=== PATIENT | male | born 1940 | race Caucasian/White ===

== ENCOUNTER → 2019-05-08 08:48 | Outpatient (BNVA) | payer OTHER, SELFPAY | PROVIDERS: Family Provider Nurse Practitioner Family; Visit Provider Orthopaedic Surgery | DX: M25.562 Pain in left knee (principal); M25.561 Pain in right knee | CPT/HCPCS: 73560; 73565 ==

== ENCOUNTER 2019-06-06 12:38 | Inpatient (IN) | payer OTHER, SELFPAY ==
[2019-05-29 10:43] VITALS: BMI 24.4
--- NOTE | 2019-05-29 11:26 | ANES.PREANE2 ---
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 for regional block and General PFSH Anesthesia PFSH: Social History Smoking and tobacco status: never smoked Alcohol intake: current Alcohol intake frequency: 0-2 Drinks per Day Data Anesthesia Cardiac Studies: No Data to Display
[2019-05-29 12:04] LABS: INR 1.39 (0.8-1.2)
[2019-06-06] VITALS (21 sets, daily range): BP systolic 104–158; BP diastolic 58–79; PULSE 68–90; RESP 14–22; TEMP 36.2–36.8; O2SAT 94–99
[2019-06-06] MEDS: gabapentin 300 mg Capsule PO (06:33)
[2019-06-06] MEDS: acetaminophen 500 mg Tablet 1000 MG PO (06:33)
[2019-06-06] MEDS: CELEcoxib 200 mg Capsule 400 MG PO (06:33)
[2019-06-06] MEDS: sodium chloride 0.9% 1,000 ML 30 ML IV (06:55)
--- NOTE | 2019-06-06 07:02 | PM.HPUD ---
H&P update H&P Update: DATE OF SURGERY/PROCEDURE: 06/06/19 DATE H&P PERFORMED: 05/08/19 PREOP DIAGNOSIS: Degenerative arthritis right knee PLANNED PROCEDURE: Operation Date: 06/06/19 07:50 Proposed Procedures p Total Knee Arthroplasty Utilizing imageless computer navigation [id number](Right) - Adrien Palomino DO Full H&P Medications/Allergies: Current Medications: Current Medications Generic Name Dose Route Start Last Admin Trade Name Freq PRN Reason Stop Dose Admin Vancomycin HCl 1,5 00 mg/ 250 mls @ 166.667 mls/hr 06/06/19 06:05 06/06/19 06:56 Sodium Chloride IV 06/06/19 07:34 166.7 mls/hr ONCE ONE Administration Protocol Sodium Chloride 1,000 mls @ 30 ml s/hr 06/06/19 06:15 06/06/19 06:55 Sodium Chloride 0.9% IV 06/07/19 06:14 30 mls/hr .Q24H LIZETH Administration Perinent History: Medical/Surgical History: Medical History (Updated 05/13/19 @ 14:53 by Adrien Palomino DO) Degenerative arthritis of right knee 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 Social History: Social History Smoking and tobacco status: never smoked Alcohol intake: current Alcohol intake frequency: 0-2 Drinks per Day A&P Assessment and plan (1) Degenerative arthritis of right knee: Right TKR with computer navigation Status: Acute Code(s): M17.11 - Unilateral primary osteoarthritis, right knee
[2019-06-06] MEDS: midazolam 1 mg/mL INJ 5 ML 5 MG IVP (07:54)
[2019-06-06] MEDS: fentaNYL 50 mcg/mL INJ 2mL 100 MCG IVP (07:56)
--- NOTE | 2019-06-06 08:05 | ANES.PROC ---
Anesthesia Procedures Procedure/Date: 06/06/19 Nerve Block ^: Nerve Block 1: Main Anesthesia: spinal anesthesia block Time Out Performed: Yes Consent: requested by attending/covering physician, risks and benefits reviewed and patient agrees to proceed Nerve block location: adductor canal (right) Anesthesia monitors applied: pulse oximetry, EKG, BP cuff and oxygen Nerve block position: supine Anesthetic Used: ropivicaine 0.5% and with decadron (4mg) Amount of anesthesia used (mL): 30 Ultrasound used to: recognize landmarks Nerve Stimulator Used?: No Interscalene/Femoral BLK: 4 stimuplex 21 g needle used for position and inplane approach, visualize local anesthetic spread and no vascular puncture identified Injection: neg aspiration of heme Patient Tolerated Procedure: well and no complications Complications: none
--- NOTE | 2019-06-06 08:47 | P.OP_ITS ---
Operative Report Date of procedure: June 06, 2019 Pre-op Diagnosis: Degenerative arthritis right knee Post-op diagnosis: same Post-op Findings: Tricompartmental osteoarthritis right knee Procedure Done: Right total knee arthroplasty Imageless computer-assisted navigation Implants: Marion triathlon knee implants Specimens removed/disposition: Bone and cartilage right knee Surgeon: Adrien Palomino Anesthesia: Other (Spinal anesthetic, single shot adductor canal block) Estimated blood loss (mL): 25 Tourniquet time (min): 120 (At 300 mmHg pressure) Complications: No apparent complications Condition: stable Disposition: PACU Brief History: 78-year-old white male with progressive disabling right knee arthritis. He is failed conservative treatment. He is attended the joint class. Risk, benefits potential complications of total joint arthroplasty were discussed with the patient. Risks include are not limited to failure to leave all pain, wound healing complications nerve/blood vessel/tendon injury, infection. Medical complications can include blood clots, heart attack, stroke risk up to including . All questions were answered the patient was agreeable to proceed with surgery. Procedure: 1.5 g vancomycin 2 g Ancef [place] triathlon knee implants Size 6 right posterior stabilized femur cemented Size 6 universal tibial baseplate Size 6 x 11 mm in thickness posterior stabilized tibial articular surface component 29 mm x 9 mm thickness asymmetric patellar component 2 packages of Simplex P low-viscosity cement with tobramycin Patient identified. Surgical site was signed. Surgical permit was signed. Patient received a single shot adductor canal block in the preoperative holding area. He received 1.5 g of vancomycin and 2 g of Ancef prior to skin incision for surgical prophylaxis. He was taken to the operating room. Anesthesia team performed a spinal anesthetic. A Riley catheter was placed for urinary drainage. A tourniquet was placed about the upper aspect of the right thigh. The right lower extremities and sterilely prepped and draped usual fashion. A timeout was performed. The patient received 1 g of transient gas at intravenously preoperatively for hemostasis. The operative limb was exsanguinated using Esmarch bandage tourniquet inflated to 300 mmHg pressure. A 20 cm midline incision was made over the anterior aspect of the knee. Full- thickness skin flaps were made. With a second knife a medial parapatellar arthrotomy was performed. Anterior aspects of the medial and lateral menisci were divided. Subperiosteal dissection was carried around to the posterior medial aspect of the tibia. Fat pad was excised. The patella was everted. Marginal osteophytes removed with rongeur. Thickness measured 25 mm. The appropriate sized patellar reamer blade was chosen. Patella was reamed to a residual of 16 mm. Patella was sized for a 29 mm x 9 mm thickness asymmetric patellar component. Appropriate peg holes were drilled. The patellar trial fit nicely on the cut surface. Overall thickness measured 25 mm after reaming with the patellar trial in place. A lateral patellar facetectomy was performed to prevent impingement on the femoral component. The knee was flexed to 60?. A pin for the Not guidance system was placed in the intercondylar notch and Whitesides line. The computer was then mounted in place. Maneuver was performed. In the computer was set for 5? of flexion for the femoral component and 0? for the mechanical axis. We resected 11 mm thickness due to the patient having a proximally a 10? flexion contracture. The femur was sized for a 6. We used the 4-in-1 cutting block followed by the box cut. We now turned our attention to preparation of the tibia. The extra medullary guide was pinned into place. Offset was registered. Anatomic references were made for the medial lateral malleoli. The computer was then set for a 00 varus valgus and posterior slope. The cut was then made with a oscillating saw. The medial and lateral menisci were now removed. Liposomal bupivacaine was injected into the joint line medially and laterally as well as the soft tissues about the knee using 120 mL of a one-to-one mixture of sterile saline, half percent bupivacaine and liposomal bupivacaine. A trial 6 Mr. stabilized right femoral component was put into place. The tibia sized for a size 6. We placed a 9 mm trial posterior stabilized component place in place knee through range of motion patella tracked nicely with a no touch technique. There is slight laxity with the 9 this was increased to 11 which gave good stability we allowed the tibial component and Tourette's rotation. Once this was done it was pinned into place and we drilled for the stem and punch the keel. All trial components were removed. Knee was dian irrigated with sterile saline containing antibiotic solution using pulse lavage. The knee surfaces were dried. We cemented in 2 batches first the patella followed by the femur this was allowed to harden and then the tibial component was cemented into place. We inserted an 11 mm posterior stabilized tibial articular surface. 11 gave good stability at extension and 90? of flexion. We removed the trial inserted the actual size 6 x 11 mm thickness posterior stabilized tibial articular surface component. The knee was now irrigated with Betadine-containing saline solution and antibiotic containing saline solution. We injected FloSeal into the knee joint for added hemostasis. Vancomycin powder was placed in the joint. The joint capsule was closed with interrupted permanent sutures as well as a running barbed suture. Incision closed in layers with samantha and exited on skin. The tourniquet was deflated during closure and a second gram of Chantix cast and was given intravenously. Sterile dressings were applied. An Jung wrap from ankle to thigh was applied. Patient was transferred from the operating room to the recovery room in stable and satisfactory condition. He tolerated surgery well. All counts are correct.
[2019-06-06] MEDS: vancomycin 1,000 MG SDV 1000 MG IRRIGATION (10:09)
--- NOTE | 2019-06-06 11:22 | SUR.OPER ---
FAMILY UPDATED BY PHONE IN WAITING AREA OF PATIENT PROGRESS
--- NOTE | 2019-06-06 12:17 | XR_ITS ---
WS: [id number] XR knee RT 1-2V 74316 REASON FOR EXAM: Postop images FINDINGS: Total knee replacement on the right the prosthesis and hardware are seen in good alignment. Tennille are noted along the skin surface. XR/XR knee RT 1-2V 47521 IMPRESSION: Total knee replacement hardware in satisfactory alignment.
[2019-06-06] MEDS: sennosides-docusate Tablet 2 TAB PO ×2 (14:17→17:39)
[2019-06-06] MEDS: calcium carbonate 500 mg Chew Tablet 1000 MG PO ×2 (14:17→17:39)
[2019-06-06] MEDS: chlorhexidine gluconate 0.12% Btl 473 mL 30 ML MUCOUS MEM ×3 (14:18→17:40)
[2019-06-06] MEDS: oxyCODONE-APAP 5-325 mg Tablet 1 TAB PO ×2 (14:18→18:29)
[2019-06-06] MEDS: cholecalciferol (vitamin D3) 1,000 unit Tablet 1000 UNIT PO (14:18)
[2019-06-06] MEDS: multivitamin therapeutic Tablet 1 TAB PO (14:18)
[2019-06-06] MEDS: aspirin 81 mg EC Tablet PO (14:18)
[2019-06-06] MEDS: sodium chloride 0.9% 1,000 ML 100 ML IV (14:20)
[2019-06-06] MEDS: ketorolac 30 mg/mL INJ 15 MG IVP (14:41)
[2019-06-06] MEDS: TRAMadol 50 mg Tablet PO ×2 (15:30→20:10)
--- NOTE | 2019-06-06 16:18 | PC.NURSE ---
Patient working with therapy walked to chair, patient became pale and weak, PT Gera said he was awake but not answering questions. BP at this time was 61/47. This nurse into room, patient laid in [place] position in bed, he began answering questions. BP 100/70. Dr. Palomino notified, patient resting in bed at this time right now BP maintaining 130/76.
[2019-06-06] MEDS: iron polysaccharide complex 150 mg Capsule PO (17:39)
[2019-06-06] MEDS: propranolol 20 mg Tablet 10 MG PO (17:43)
[2019-06-06] MEDS: atorvastatin 40 mg Tablet PO (20:13)
[2019-06-06] MEDS: apixaban 5 mg Tablet 2.5 MG PO (20:15)
[2019-06-07] VITALS (14 sets, daily range): BP systolic 113–168; BP diastolic 50–78; PULSE 72–86; RESP 16–24; TEMP 36.6–36.8; O2SAT 94–96
[2019-06-07] MEDS: oxyCODONE-APAP 5-325 mg Tablet 1 TAB PO ×3 (00:20→12:51)
[2019-06-07] MEDS: HYDROmorphone 1 mg/mL INJ 1 mL 0.5 MG IVP ×4 (01:35→16:53)
[2019-06-07] MEDS: sodium chloride 0.9% 1,000 ML 100 ML IV (03:14)
[2019-06-07 03:28] LABS: Hematocrit 34.5 % (42.0-52.0); Hemoglobin 11.4 g/dL (11.7-16.6); Lymphocytes # 0.7 10^3/uL (0.8-4.8); Lymphocytes % 7.9 %; Mean Corpuscular Volume 96.9 fL (80-94); Mean Platelet Volume 10.6 fL (7.4-10.4); Monocytes # 0.9 10^3/uL (0.2-0.9); Monocytes % 10.8 %; Nucleated Red Blood Cells % 0 %; Platelet Count 160 10^3/cmm (130-400); Red Blood Count 3.56 10^6/uL (4.1-5.3); Red Cell Distribution Width 12.8 % (12.1-15.1); White Blood Count 8.7 10^3/uL (4.0-10.0)
[2019-06-07 03:55] LABS: Anion Gap 15.3 (5-19); Blood Urea Nitrogen 16 mg/dL (8-23); Calcium 8.9 mg/dL (8.5-10.5); Carbon Dioxide 21 mmol/L (22-29); Chloride 105 mmol/L (98-107); Glucose 169 mg/dL (65-115); Osmolality Calculated 284 mOsm/kg (285-295); Potassium 4.3 mmol/L (3.5-5.1); Sodium 137 mmol/L (136-145)
[2019-06-07] MEDS: dilTIAZem ER (24HR) 120 mg Capsule PO (05:12)
--- NOTE | 2019-06-07 07:17 | PM.PN ---
Subjective Subjective: Interval history: 78-year-old white male postoperative day 1 status post right total knee arthroplasty with imageless computer assisted navigation for degenerative arthritis. Patient receiving vancomycin and cefazolin for antimicrobial prophylaxis. He is at highest risk for VTE. VTE prophylaxis consists of X abandoned 2.5 mg by mouth twice a day he is also receiving an 81 mg aspirin per day, sequential compression devices and immobilization. During an attempt to be mobilized last evening his blood pressure dropped he received fluids. Nursing reports that the patient was doing well. Vitals/I&O/Wt Last Vital Signs Temp 97.9 F 06/07/19 04:19 Pulse 73 06/07/19 04:19 Resp 16 06/07/19 05:39 BP 116/50 06/07/19 04:19 Pulse Ox 94 06/07/19 04:19 06/06/19 06/07/19 06/07/19 22:59 06:59 14:59 Intake Total 530 / 1800 1050 / 2850 Output Total 950 / 975 550 / 1525 Balance -420 / 825 500 / 1325 Physical Exam Narrative: EXAM NARRATIVE: 78-year-old white male in no acute distress Neck/C-Spine: COMMON NORMALS: no JVD Resp: COMMON NORMALS: normal respiratory effort and no retractions AUSCULTATION: no crackles, no rales, no rhonchi and no wheezes Cardio: COMMON NORMALS: no JVD, regular rate, regular rhythm, no murmurs and no rub RATE: regular rate RHYTHM: regular rhythm GI: COMMON NORMALS: normal to inspection, nondistended, normoactive bowel sounds Extremity: RIGHT LOWER EXTREMITY: Yes knee joint (Jung wrap removed, dressing to right knee clean dry and intact with Tegaderm covering dressing) and Yes lower leg Right lower leg: Yes special tests Right lower leg special tests: Yulisa's sign: Negative LEFT LOWER EXTREMITY: Yes lower leg Left lower leg: Yes special tests Left lower leg special tests: Yulisa's sign: Negative Urinary Catheter Management^: Riley: Cath Placed During This Visit: yes, but has since been removed by the nurse Reason for Continuing Indwelling Catheter: Perioperative Use in Selected Surgeries Urinary Catheter Date of Insertion: 06/06/19 Urinary Catheter Time of Insertion: 09:12 Date Urinary Catheter Removed: 06/07/19 Time Urinary Catheter Discontinued: 06:31 Data : 06/07/19 02:45 06/07/19 02:45 A&P Assessment and plan (1) S/P total knee arthroplasty: Finish IV antibiotic prophylaxis today Riley catheter removed today Continue apixaban, mobilization sequential compression devices for VTE prophylaxis (highest risk) Discharge planning to home potentially as soon as tomorrow with home health services. Discharge will depend if patient's pain is controlled and has been able to safely ambulate Status: Acute Code(s): Z96.659 - Presence of unspecified artificial knee joint Attestations Medical Necessity Statement*: patient requires continued inpatient care for mobilization. Had episode of hypotension during an attempt for mobilization on postoperative day 0. We'll need to monitor his ability to ambulate and transfer safely prior to making any considerations for discharge. Riley catheter discontinued today made to ensure no issues with urinary retention postoperatively Time Spent in Patient Care: 16 - 35 minutes Coding Level of Care Code Acute Group Insurance Special Agent for Chg Fwd Diagnoses S/P total knee arthroplasty Z96.659
[2019-06-07] MEDS: ketorolac 30 mg/mL INJ 15 MG IVP ×2 (08:03→15:30)
[2019-06-07] MEDS: calcium carbonate 500 mg Chew Tablet 1000 MG PO ×2 (08:04→17:51)
[2019-06-07] MEDS: multivitamin therapeutic Tablet 1 TAB PO (08:05)
[2019-06-07] MEDS: iron polysaccharide complex 150 mg Capsule PO ×2 (08:05→17:51)
[2019-06-07] MEDS: apixaban 5 mg Tablet 2.5 MG PO ×2 (08:06→17:51)
[2019-06-07] MEDS: aspirin 81 mg EC Tablet PO (08:06)
[2019-06-07] MEDS: cholecalciferol (vitamin D3) 1,000 unit Tablet 1000 UNIT PO (08:06)
[2019-06-07] MEDS: sennosides-docusate Tablet 2 TAB PO ×2 (08:09→17:51)
[2019-06-07] MEDS: chlorhexidine gluconate 0.12% Btl 473 mL 30 ML MUCOUS MEM ×3 (08:21→17:52)
[2019-06-07] MEDS: propranolol 20 mg Tablet 10 MG PO ×2 (10:18→19:30)
--- NOTE | 2019-06-07 11:51 | PC.CHAP ---
Pastoral Care Encounter/Spiritual Assessment Type of Contact [] Declined signal technician visit [] Patient/Family/Request visit [] Outpatient visit [] Follow-up visit [] Physician referral [] Code/Alert [] Routine visit [] Staff referral [] Actively dying [] Patient sleeping [] Family support [] [] Out of room [] Palliative care [] [] Receiving care in room [] Pre-surgical visit [] Trauma [] Long length of stay [] ICU visit [] Other: Relational/Emotional Strength [x] Patient feels connected with others/family/visitors/staff [] Distress [] Loneliness/isolation [] Abandonment Spirituality of Patient [] Person of Denae [] Attends Voodoo of their Denae [] Believes in Prayer [] Reads Bible or Buddhist materials [] There are Spiritual issues to be addressed Rug Cutter Helper Interventions [x] Prayer [x] Active listening [] Non-anxious presence [] Spiritual/emotional support [] Crisis/trauma care [] Spiritual counseling [] Bereavement support [] Provided bereavement packet [] Provided Bible/devotional materials [] Provided toy/stuffed animal, coloring book to patient or family member [] Provided Communion [] Anointing/[place] [] Salvation [] Completed spiritual assessment [] Other: Impact on Illness or Injury [] Angry [] Fearful [] Anxious [] Often cries [] Exhaustion [] Unable to work [] Unable to attend roman catholic [] Unable to walk/stand [] Unable to read [] Unable to drive [] Unable to eat/drink [] Unable to sleep [] Unable to be with family [] Patient intubated [] Other: Summary 10 min Time spent with patient
[2019-06-07] MEDS: TRAMadol 50 mg Tablet PO (15:31)
[2019-06-07] MEDS: oxyCODONE-APAP 5-325 mg Tablet PO (19:16)
[2019-06-07] MEDS: atorvastatin 40 mg Tablet PO (19:31)
[2019-06-08] VITALS (10 sets, daily range): BP systolic 94–157; BP diastolic 45–76; PULSE 75–109; RESP 16–20; TEMP 36.7–36.9; O2SAT 94–96
[2019-06-08] MEDS: oxyCODONE-APAP 5-325 mg Tablet PO ×2 (03:06→08:23)
[2019-06-08 04:11] LABS: Basophils % 0.3 %; Eosinophils # 0.1 10^3/uL (0.0-0.8); Eosinophils % 0.8 %; Hematocrit 30.8 % (42.0-52.0); Hemoglobin 10.2 g/dL (11.7-16.6); Lymphocytes # 0.9 10^3/uL (0.8-4.8); Lymphocytes % 12.6 %; Mean Corpuscular HGB Conc 33.1 g/dL (30.0-36.0); Mean Corpuscular Hemoglobin 31.2 pg (28.0-34.0); Mean Corpuscular Volume 94.2 fL (80-94); Mean Platelet Volume 11.1 fL (7.4-10.4); Monocytes # 1.2 10^3/uL (0.2-0.9); Monocytes % 17.1 %; Neutrophils % 68.8 %; Nucleated Red Blood Cells % 0 %; Platelet Count 138 10^3/cmm (130-400); Red Blood Count 3.27 10^6/uL (4.1-5.3); Red Cell Distribution Width 13.3 % (12.1-15.1); White Blood Count 7.2 10^3/uL (4.0-10.0)
[2019-06-08 04:37] LABS: Anion Gap 14.9 (5-19); Blood Urea Nitrogen 12 mg/dL (8-23); Carbon Dioxide 26 mmol/L (22-29); Chloride 100 mmol/L (98-107); Glucose 168 mg/dL (65-115); Osmolality Calculated 284 mOsm/kg (285-295); Potassium 3.9 mmol/L (3.5-5.1); Sodium 137 mmol/L (136-145)
[2019-06-08] MEDS: iron polysaccharide complex 150 mg Capsule PO ×2 (08:21→17:55)
[2019-06-08] MEDS: propranolol 20 mg Tablet 10 MG PO ×2 (08:21→18:00)
[2019-06-08] MEDS: calcium carbonate 500 mg Chew Tablet 1000 MG PO ×2 (08:21→17:55)
[2019-06-08] MEDS: cefUROXime 250 mg Tablet 500 MG PO ×2 (08:21→17:54)
[2019-06-08] MEDS: apixaban 5 mg Tablet 2.5 MG PO ×2 (08:22→17:55)
[2019-06-08] MEDS: dilTIAZem ER (24HR) 120 mg Capsule PO (08:22)
[2019-06-08] MEDS: sennosides-docusate Tablet 2 TAB PO ×2 (08:22→17:55)
[2019-06-08] MEDS: multivitamin therapeutic Tablet 1 TAB PO (08:22)
[2019-06-08] MEDS: cholecalciferol (vitamin D3) 1,000 unit Tablet 1000 UNIT PO (08:22)
[2019-06-08] MEDS: aspirin 81 mg EC Tablet PO (08:23)
[2019-06-08] MEDS: chlorhexidine gluconate 0.12% Btl 473 mL 30 ML MUCOUS MEM ×3 (08:24→17:58)
[2019-06-08] MEDS: HYDROmorphone 1 mg/mL INJ 1 mL 0.5 MG IVP (11:02)
[2019-06-08] MEDS: ketorolac 30 mg/mL INJ 15 MG IVP (15:26)
[2019-06-08] MEDS: TRAMadol 50 mg Tablet PO (15:27)
--- NOTE | 2019-06-08 17:27 | PC.NURSE ---
Bladder Scan pt had 151 nl urine in bladder at the most.
--- NOTE | 2019-06-08 18:53 | PM.PN ---
Subjective Subjective: Interval history: 78-year-old white male postoperative day 2 status post right total knee arthroplasty. Patient still with concerns with regards to postoperative pain. He became disoriented with taking Ambien last night. He states he takes Tylenol PM at home with no such side effects. We'll give him Benadryl this evening versus Ambien. Vitals/I&O/Wt Last Vital Signs Temp 98.4 F 06/08/19 16:00 Pulse 90 06/08/19 16:00 Resp 18 06/08/19 16:00 BP 94/53 06/08/19 16:00 Pulse Ox 96 06/08/19 16:00 06/08/19 06/08/19 06/08/19 06:59 14:59 22:59 Intake Total 120 / 120 360 / 480 Output Total 975 / 1475 500 / 500 Balance -975 / -275 -380 / -380 360 / -20 Physical Exam Narrative: EXAM NARRATIVE: 78-year-old white male in no acute distress. Expresses concerns about pain management although comfortable at the present time. Concerned about increased pain with increased activity when he goes home. Const: COMMON NORMALS: no apparent distress, oriented x3, healthy appearing, alert and well nourished GENERAL APPEARANCE: cooperative and comfortable ORIENTATION/CONSCIOUSNESS: Yes awake; not confused and not obtunded Neck/C-Spine: COMMON NORMALS: no JVD Resp: COMMON NORMALS: normal respiratory effort EFFORT & INSPECTION: Yes able to speak in complete sentences AUSCULTATION: no crackles, no rales, no rhonchi and no wheezes Cardio: COMMON NORMALS: no JVD, regular rate, regular rhythm, S1 normal heart sound, S2 normal heart sound and no murmurs RATE: regular rate RHYTHM: regular rhythm HEART SOUNDS: S1 normal and S2 normal Extremity: RIGHT LOWER EXTREMITY: Yes knee joint (incision intact, no evidence of infection, dressing changed) and Yes lower leg Right lower leg: Yes special tests Right lower leg special tests: Yulisa's sign: Negative LEFT LOWER EXTREMITY: Yes lower leg Left lower leg: Yes special tests Left lower leg special tests: Yulisa's sign: Negative Neuro: COMMON NORMALS: oriented x3 SENSORIUM/ORIENTATION: Yes alert Urinary Catheter Management^: Riley: Cath Placed During This Visit: yes, but has since been removed by the nurse Reason for Continuing Indwelling Catheter: Not indwelling catheter Urinary Catheter Date of Insertion: 06/06/19 Urinary Catheter Time of Insertion: 09:12 Date Urinary Catheter Removed: 06/07/19 Time Urinary Catheter Discontinued: 06:31 Data : 06/08/19 03:00 06/08/19 03:00 Attestations Medical Necessity Statement*: patient was felt to require greater than 2 overnight stays due to age,, hypertension, hyperlipidemia, deconditioning due to chronic osteoporosis arthritis right knee patient's extreme focus on pain management this problematic. Patient concerned about managing pain at home. Concerned about getting refills of narcotic medication on at home. Patient once again reinforced that he will not be pain free following surgery he will need to modify his activity level and amount of activity based on postoperative discomfort. He'll still be encouraged perform ankle pumps isometric contractions of calf and thigh muscles work on terminal extension. Arrangements at discharge made for home nursing and physical therapy prior to being seen in the office in approximately 2 weeks. Time Spent in Patient Care: 16 - 35 minutes (>than 50% of time spent in counselling and/or direct pt care on unit). Coding Level of Care Code Acute Personal Injury Law Specialist for [place]
--- NOTE | 2019-06-08 19:45 | P.DS_ITS ---
Discharge Providers Date of Admission: 06/06/19 12:38 Date of Discharge: June 09, 2019 Attending Provider at Admission: Adrien Palomino DO Attending Provider at Discharge: Adrien Palomino DO Primary Care Provider: Adrien Palomino DO Diagnoses at Discharge Discharge Diagnosis (1) S/P total knee arthroplasty: Status: Acute Reason for Visit Reason for Visit: Reason For Visit: Primary Osteoarthritits of right knee Hospital Course Hospital Course: 78-year-old white male with degenerative arthritis of the right knee admitted for elective right total knee arthroplasty. Patient underwent surgery with spinal anesthetic, single shot adductor canal block. He received perioperative intravenous antibiotics with vancomycin and cefazolin, Riley catheter was placed prior to surgery and removed on postoperative day 1. His full dose of Eliquis was stopped prior to surgery as well as low-dose aspirin he was started on low-dose Eliquis postoperatively and is slow dose aspirin was restarted. At the time of discharge to home he is return to his full dose of Eliquis 5 mg by mouth twice a day. He was started on extended oral prophylaxis on postoperative day 2 with Ceftin 500 mg 1 by mouth twice a day. He experienced some urinary frequency after the Riley catheter was removed she was started on Flomax 0.4 mg per day. Incision is been intact. Patient has participated in physical therapy. At home patient will have home nursing and physical therapy with follow-up in approximately 2 weeks in the orthopedic clinic Physical Exam Narrative: EXAM NARRATIVE: 78-year-old white male and no acute distress Const: COMMON NORMALS: no apparent distress, oriented x3, healthy appearing, alert and well nourished EXAM LIMITATIONS: no altered mental status GENERAL APPEARANCE: cooperative, comfortable and well kempt Neck/C-Spine: COMMON NORMALS: no JVD Resp: COMMON NORMALS: normal respiratory effort EFFORT & INSPECTION: Yes able to speak in complete sentences AUSCULTATION: no crackles, no rales, no rhonchi and no wheezes Cardio: COMMON NORMALS: no JVD, regular rate, regular rhythm, S1 normal heart sound, S2 normal heart sound and peripheral pulses 2+ throughout RATE: regular rate RHYTHM: regular rhythm HEART SOUNDS: S1 normal and S2 normal PERIPHERAL PULSES: pulses 2+ throughout Extremity: RIGHT LOWER EXTREMITY: Yes knee joint (incision intact no erythema) and Yes lower leg Right lower leg: Yes special tests Right lower leg special tests: Yulisa's sign: Negative LEFT LOWER EXTREMITY: Yes lower leg Left lower leg: Yes special tests Left lower leg special tests: Yulisa's sign: Negative Neuro: COMMON NORMALS: oriented x3 SENSORIUM/ORIENTATION: Yes alert Psych: APPEARANCE: Yes well kempt Urinary Catheter Management^: Riley: Cath Placed During This Visit: yes, but has since been removed by the nurse Reason for Continuing Indwelling Catheter: Not indwelling catheter Urinary Catheter Date of Insertion: 06/06/19 Urinary Catheter Time of Insertion: 09:12 Date Urinary Catheter Removed: 06/07/19 Time Urinary Catheter Discontinued: 06:31 Discharge Data Data Completed and Pending: Completed Studies During Hospitalization Category Date Time Status XR knee RT 1-2V 7 3560 Urgent Exams 06/06/19 12:17 Completed Pending at discharge Category Date Time Status Pathology: Surgic al [PTH] Routine Pth 06/06/19 11:34 Received Labs from last 24 hours 06/08/19 06/08/19 03:00 03:00 WBC 7.2 RBC 3.27 L Hgb 10.2 L Hct 30.8 L MCV 94.2 H MCH 31.2 MCHC 33.1 RDW 13.3 Plt Count 138 MPV 11.1 H Neut % (Auto) 68.8 Lymph % (Auto) 12.6 Rowan % (Auto) 17.1 Eos % (Auto) 0.8 Baso % (Auto) 0.3 Neut # (Auto) 5.0 Lymph # (Auto) 0.9 Rowan # (Auto) 1.2 H Eos # (Auto) 0.1 Baso # (Auto) 0.0 Nucleated RBC % (a uto) 0 Nucleated RBCs # 0.0 Sodium 137 Potassium 3.9 Chloride 100 Carbon Dioxide 26 Anion Gap 14.9 BUN 12 Creatinine 0.8 Glucose 168 H Calculated Osmolal ity 284 L Calcium 9.0 Vitals: Last Vital Signs Temp 98.4 F 06/08/19 16:00 Pulse 90 06/08/19 16:00 Resp 18 06/08/19 16:00 BP 114/45 06/08/19 19:44 Pulse Ox 96 06/08/19 16:00 Discharge Plan Discharge Patient Disposition: Home Health Service Condition: Stable Prescriptions: New Percocet 5-325 mg tablet 1 - 2 tab PO Q4H Qty: 40 RF: 0 cefuroxime axetil 500 mg tablet 500 mg PO BID 7 Days Qty: 14 RF: 0 Continued atorvastatin 40 mg tablet 40 mg PO QDAY RF: 0 Eliquis 5 mg tablet 5 mg PO BID RF: 0 propranolol 20 mg tablet 10 mg PO BID RF: 0 aspirin [Adult Low Dose Aspirin] 81 mg tablet,delayed release (DR/EC) 81 mg PO QDAY RF: 0 cetirizine 10 mg capsule 10 mg PO DAILY RF: 0 diltiazem HCl 120 mg capsule,extended release 24 hr 120 mg PO QAM RF: 0 fluticasone propionate [Flonase Allergy Relief] 50 mcg/actuation spray,suspension 1 spray INTRANASAL QDAY RF: 0 cholecalciferol (vitamin D3) 1,000 unit capsule 1,000 unit PO QDAY RF: 0 cyanocobalamin (vitamin B-12) 1,000 mcg capsule 1,000 mcg PO QDAY RF: 0 Discharge Orders: Discharge Order (Routine); Ordered 06/09/19 Ordered By: Adrien Palomino Referrals: [facility] ([facility]) [Outside] Adrien Palomino DO [Primary Care Provider] - 06/21/19 9:00 am Discharge Diet: Usual diet Discharge Activity: Limit activity as instructed and Use walker/crutches as instructed Patient Instructions: Cefuroxime (By mouth), Oxycodone/Acetaminophen (By mouth), Osteoarthritis (DC), Revision Total Joint Arthroplasty (DC) Activity Restrictions/Additional Instructions: Keep dressing keep clean and dry until seen by visiting nurse. May coordinate with visiting nurse to shower prior to dressing changes. Weightbearing as tolerated right lower extremity Work on active range of motion. Goal is to be at near 0 degrees of full extension and 90 degrees of flexion by 4 weeks after surgery. Ice right knee to decrease pain and swelling Perform ankle pumps, isometric contractions of left and right lower extremities and gluteal squeezes work up to 3-4 sets of 25 repetitions per day May try to do straight leg raises bilateral lower extremities alternating raising the extremities 3 to 4 inches off the floor or bed again doing 3-4 sets of up to 25 repetitions per day. Discharge Date/Time: 06/09/19 12:05 Discharge Attestations Time Spent in Discharge Care*: greater than 30 min Quality Metrics Clinical Quality Measures During this hospital stay, did patient experience: None Coding Level of Care Code Acute Electronic Health Records Specialist for Chg Fwd Exam Detailed Diagnoses S/P total knee arthroplasty Z96.659
[2019-06-08] MEDS: atorvastatin 40 mg Tablet PO (19:50)
[2019-06-08] MEDS: oxyCODONE-APAP 5-325 mg Tablet 1 TAB PO (19:50)
[2019-06-08] MEDS: diphenhydrAMINE 50 mg Capsule PO (19:50)
[2019-06-09] VITALS (8 sets, daily range): BP systolic 122–142; BP diastolic 64–78; PULSE 58–110; RESP 16–18; TEMP 36.7–37.2; O2SAT 94–96
[2019-06-09] MEDS: oxyCODONE-APAP 5-325 mg Tablet 1 TAB PO ×2 (03:10→09:40)
[2019-06-09] MEDS: ketorolac 30 mg/mL INJ 15 MG IVP (03:26)
[2019-06-09] MEDS: dilTIAZem ER (24HR) 120 mg Capsule PO (05:30)
[2019-06-09] MEDS: calcium carbonate 500 mg Chew Tablet 1000 MG PO (08:41)
[2019-06-09] MEDS: multivitamin therapeutic Tablet 1 TAB PO (08:41)
[2019-06-09] MEDS: iron polysaccharide complex 150 mg Capsule PO (08:41)
[2019-06-09] MEDS: chlorhexidine gluconate 0.12% Btl 473 mL 30 ML MUCOUS MEM (08:42)
[2019-06-09] MEDS: cholecalciferol (vitamin D3) 1,000 unit Tablet 1000 UNIT PO (08:42)
[2019-06-09] MEDS: sennosides-docusate Tablet 2 TAB PO (08:42)
[2019-06-09] MEDS: aspirin 81 mg EC Tablet PO (08:43)
[2019-06-09] MEDS: cefUROXime 250 mg Tablet 500 MG PO (10:15)
[2019-06-09] MEDS: apixaban 5 mg Tablet PO (10:17)
[2019-06-09] MEDS: sodium chloride 0.9% 500 ML 999 ML IV (10:26)
--- NOTE | 2019-06-09 10:50 | PC.NURSE ---
patient having orthostatichypotenstion and apical pulse of 58 so we held propranolol
[2019-06-09 11:30] LABS: Hemoglobin 10.7 g/dL (11.7-16.6)
--- NOTE | 2019-06-09 11:50 | PC.SOCIAL ---
Pg 2 IMM Explained to pt Pg 2 IMM. Pt verbally understands & signed. No questions voiced. Provided a copy to pt & left on pt's bedside table. Signed, dated, & timed, then placed in chart.
== END 2019-06-09 12:05 | disposition home health service (06) | DRG 470 ==
LOC: MEDSURG 13:33
PROVIDERS: Admitting Provider Orthopaedic Surgery; Family Provider Nurse Practitioner Family; PCP Orthopaedic Surgery; Visit Provider Orthopaedic Surgery
PROC: 0SRC0J9 Replacement of Right Knee Joint with Synthetic Substitute, Cemented, Open Approach (ICD-10-PCS; CPT 27447; principal; 2019-06-06 07:50)
DX: M17.11 Unilateral primary osteoarthritis, right knee (principal)
CPT/HCPCS: 12345; 36415; 51702; 73560; 80048; 85018; 85025; 85610; 86850; 86900; 87641; 88304; 96365; 96374; 96375; 97110; 97116; 97163; 97165; 97530; C1776; C9290; J0171; J0690; J1100; J1170; J1580; J1885; J2250; J2704; J2795; J3010; J3370; J3490; J7030; J7040; J7050; Q0163

== ENCOUNTER 2019-06-21 14:48 | Emergency (ER) | payer OTHER, SELFPAY ==
[2019-06-21 15:02] VITALS: BP 98/54; PULSE 93; RESP 16; TEMP 36.6; O2SAT 97; BMI 23.5
[2019-06-21 15:28] VITALS: BP 119/61; BP 121/71; BP 75/41; PULSE 85; PULSE 94; PULSE 99
--- NOTE | 2019-06-21 15:35 | XR_ITS ---
WS: [id number] XR chest 1V portable [id number] REASON FOR EXAM: dizziness FINDINGS: Comparisons were made to June 28, 2018. The heart and mediastinal interfaces were normal. The lung shankar are well-aerated there is no pneumonia, pleural effusion, pulmonary edema, or mass ef fect. Normal diaphragms are seen. The hilum and apices are normal. No osseous abnormalities. XR/XR chest 1V portable [id number] IMPRESSION: No active cardiopulmonary changes similar to previous exam.
--- NOTE | 2019-06-21 15:35 | ECG_ITS ---
Measurements Intervals [place] Rate: 95 P: ME: 0 QRS: 75 QRSD: 104 T: 0 QT: 356 QTc: 448 ATRIAL FIBRILLATION NONSPECIFIC T-WAVE ABNORMALITY ABNORMAL RHYTHM ECG Compared to ECG 06/29/2018 00:17:00 T-wave abnormality now present Intraventricular conduction delay no longer present Electronically Signed On 06-21-2019 16:50:55 LINING FINISHER by Josesito Boles M.D. [email or web address]
--- NOTE | 2019-06-21 15:38 | ED_ITS ---
HPI - Dizziness General: Chief Complaint: Dizziness Stated Complaint: low BP light headed/dizzy Time Seen by Provider: 06/21/19 15:16 History of Present Illness: HPI Narrative: Patient felt dizzy today while standing up. Had right knee replacement on via Dr. Palomino. Patient had a lot of knee pain on Wednesday and took 2 Percocet every 4 hours. Has had problems with constipation now. Said he does not feel dizzy now but does have dizziness with standing denies any chest pain or shortness of breath patient is on [place] LOBATO elicited complaint: dizziness Onset (ago): hour(s) Timing: sudden onset Severity: mild Description: room spinning Context: recent illness History of similar symptoms: No Exacerbating factors: movement/ambulation Relieving factors: remaining still Associated symptoms: Reports no associated symptoms; Denies chest pain, chills, headache(s), nausea, nasal congestion or vomiting Associated neuro symptoms: Reports no associated symptoms Review of Systems Const: Denies: fever, chills or body aches Eyes: Denies: change in vision or blurry vision ENMT: Denies: throat pain or nasal congestion Card: Denies: chest pain or shortness of breath on exertion Resp: Denies: shortness of breath, productive cough or non-productive cough GI: Denies: abdominal pain, nausea or vomiting : Denies: difficulty urinating Musc: Denies: extremity pain Skin/Breast: Denies: rash Neuro: Reports: dizziness; Denies: headache Psych: Denies: anxiety or depression Noe/Lymph: Denies: easy bruising PFSH ED PFSH: Medical History (Updated 06/21/19 @ 16:22 by FREEMAN Avendaño) Degenerative arthritis of right knee 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 Surgical History (Updated 06/07/19 @ 12:40 by Adrien Palomino DO) H/O arthroscopy of right knee H/O carotid endarterectomy Hx of tonsillectomy S/P total knee arthroplasty Social History Smoking and tobacco status: never smoked Alcohol intake: current Alcohol intake frequency: 0-2 Drinks per Day Physical Exam Const: COMMON NORMALS: no apparent distress, average body habitus and oriented x3 HENMT: COMMON NORMALS: normocephalic HEAD & SCALP: normal to inspection and normocephalic FACE & SINUS: normal facial exam Eye: COMMON NORMALS: conjunctivae normal GENERAL EYE: normal appearance of both eyes CONJUNCTIVA: Yes conjunctivae normal Neck/C-Spine: COMMON NORMALS: no JVD Chest: COMMONS NORMALS: inspection of chest normal Resp: COMMON NORMALS: normal respiratory effort and clear to auscultation bilaterally AUSCULTATION: clear to auscultation bilaterally Cardio: COMMON NORMALS: no JVD, regular rate and regular rhythm RATE: regular rate RHYTHM: regular rhythm GI: COMMON NORMALS: normal to inspection, nondistended, normoactive bowel sounds Extremity: COMMON NORMALS: normal to inspection and full ROM RIGHT LOWER EXTREMITY: Yes knee joint (With bandage in place no erythema noted to the leg and no swelling noted below the recent surgery) Neuro: COMMON NORMALS: oriented x3 Course Vital Signs: Vital signs: Vital Signs Temperature 97.8 F 06/21/19 15:02 Pulse Rate 85 06/21/19 15:28 Respiratory Rate 16 06/21/19 15:02 Blood Pressure 119/61 06/21/19 15:28 Pulse Oximetry 97 06/21/19 15:02 MDM - Dizziness MDM Narrative: Medical decision making narrative: Stressed the need to increase fluid which would include water lay off the coffee and tea if possible follow-up your family provider Lab Data: Labs: Lab Results 06/21/19 06/21/19 06/21/19 Range/Units 15:42 15:42 15:42 WBC 7.0 (4.0-10.0) 10^3/ uL RBC 3.56 L (4.1-5.3) 10^6/u L Hgb 10.8 L (11.7-16.6) g/dL Hct 34.0 L (42.0-52.0) % MCV 95.5 H (80-94) fL MCH 30.3 (28.0-34.0) pg MCHC 31.8 (30.0-36.0) g/dL RDW 13.2 (12.1-15.1) % Plt Count 519 H (130-400) 10^3/c mm MPV 9.3 (7.4-10.4) fL Neut % (Auto) 66.0 % Lymph % (Auto) 19.5 % Fleming % (Auto) 12.4 % Eos % (Auto) 1.4 % Baso % (Auto) 0.4 % Neut # (Auto) 4.6 (1.8-7.7) 10^3/u L Lymph # (Auto) 1.4 (0.8-4.8) 10^3/u L Fleming # (Auto) 0.9 (0.2-0.9) 10^3/u L Eos # (Auto) 0.1 (0.0-0.8) 10^3/u L Baso # (Auto) 0.0 (0.0-0.1) 10^3/u L Nucleated RBC % (a uto) 0 % Nucleated RBCs # 0.0 /100WBC Sodium 136 (136-145) mmol/L Potassium 4.7 (3.5-5.1) mmol/L Chloride 98 (98-107) mmol/L Carbon Dioxide 26 (22-29) mmol/L Anion Gap 16.7 (5-19) BUN 16 (8-23) mg/dL Creatinine 1.0 (0.7-1.2) mg/dL Glucose 146 H (65-115) mg/dL Calcium 9.7 (8.5-10.5) mg/dL Total Bilirubin 0.7 (0.15-1.2) mg/dL AST 18 (0-40) U/L ALT 13 (0-41) U/L Alkaline Phosphata se 101 (40-130) IU/L Troponin T Gen 5 n g/L 15 (0-15) ng/mL Total Protein 7.5 (6.6-8.7) g/dL Albumin 3.8 (3.5-5.2) g/dL Globulin 3.7 (1.3-4.6) g/dL EKG Data^: EKG 1: EKG interpretation date: 06/21/19 EKG interpretation time: 16:10 Interpretation: A fib, 95 bpm, lots of artifact Discharge Plan Discharge Patient Disposition: Home, Self-Care Clinical Impression: Acute dehydration, Atrial fibrillation, chronic Condition: Stable Prescriptions: New tramadol 50 mg tablet 50 mg PO Q6H PRN (Reason: pain) Qty: 10 RF: 0 No Action atorvastatin 40 mg tablet 40 mg PO QDAY RF: 0 Eliquis 5 mg tablet 5 mg PO BID RF: 0 propranolol 20 mg tablet 10 mg PO BID RF: 0 aspirin [Adult Low Dose Aspirin] 81 mg tablet,delayed release (DR/EC) 81 mg PO QDAY RF: 0 cetirizine 10 mg capsule 10 mg PO DAILY RF: 0 diltiazem HCl 120 mg capsule,extended release 24 hr 120 mg PO QAM RF: 0 fluticasone propionate [Flonase Allergy Relief] 50 mcg/actuation spray,suspension 1 spray INTRANASAL QDAY RF: 0 cholecalciferol (vitamin D3) 1,000 unit capsule 1,000 unit PO QDAY RF: 0 cyanocobalamin (vitamin B-12) 1,000 mcg capsule 1,000 mcg PO QDAY RF: 0 amoxicillin 500 mg capsule 500 mg PO .COMPLEX Qty: 24 RF: 0 Discharge Orders: Discharge Order (Routine); Ordered 06/21/19 Ordered By: Robbie Ren Referrals: Adrien Palomino DO [Primary Care Provider] - Latanya Blank FNP [Family Provider] - Discharge Diet: Usual diet Discharge Activity: Resume usual activity Patient Instructions: Dehydration (ED) Activity Restrictions/Additional Instructions: Follow-up with medical provider as directed. Take medications as prescribed. Return to the ER or your medical provider if condition worsens. Please read and understand discharge instructions. If any questions ask please. Increase fluids decrease use of Percocet. take laxative. Stand up slowly. 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
[2019-06-21 15:49] LABS: Basophils % 0.4 %; Eosinophils # 0.1 10^3/uL (0.0-0.8); Eosinophils % 1.4 %; Hemoglobin 10.8 g/dL (11.7-16.6); Lymphocytes # 1.4 10^3/uL (0.8-4.8); Lymphocytes % 19.5 %; Mean Corpuscular HGB Conc 31.8 g/dL (30.0-36.0); Mean Corpuscular Hemoglobin 30.3 pg (28.0-34.0); Mean Corpuscular Volume 95.5 fL (80-94); Mean Platelet Volume 9.3 fL (7.4-10.4); Monocytes # 0.9 10^3/uL (0.2-0.9); Monocytes % 12.4 %; Neutrophils # 4.6 10^3/uL (1.8-7.7); Nucleated Red Blood Cells % 0 %; Platelet Count 519 10^3/cmm (130-400); Red Blood Count 3.56 10^6/uL (4.1-5.3); Red Cell Distribution Width 13.2 % (12.1-15.1)
[2019-06-21] MEDS: sodium chloride 0.9% 1,000 ML 999 ML IV (16:06)
[2019-06-21 16:09] LABS: Troponin T (5th) Once 15 ng/mL (0-15)
[2019-06-21 16:25] LABS: Alanine Aminotransferase 13 U/L (0-41); Albumin Level 3.8 g/dL (3.5-5.2); Alkaline Phosphatase 101 IU/L (40-130); Anion Gap 16.7 (5-19); Aspartate Amino Transferase 18 U/L (0-40); Blood Urea Nitrogen 16 mg/dL (8-23); Calcium 9.7 mg/dL (8.5-10.5); Carbon Dioxide 26 mmol/L (22-29); Chloride 98 mmol/L (98-107); Globulin 3.7 g/dL (1.3-4.6); Glucose 146 mg/dL (65-115); Potassium 4.7 mmol/L (3.5-5.1); Sodium 136 mmol/L (136-145); Total Bilirubin 0.7 mg/dL (0.15-1.2); Total Protein 7.5 g/dL (6.6-8.7)
[2019-06-21 17:29] VITALS: BP 122/76; PULSE 75; RESP 18; O2SAT 99
== END 2019-06-21 17:31 | disposition home or self-care (01) ==
LOC: ER 17:18
PROVIDERS: Emergency Provider Nurse Practitioner Family; Family Provider Nurse Practitioner Family; PCP Orthopaedic Surgery
DX: E86.0 Dehydration (principal); I48.20 Chronic atrial fibrillation, unspecified; R42 Dizziness and giddiness
CPT/HCPCS: 12345; 36415; 71045; 80053; 84484; 85025; 93005; 96360; 99283; J7030

== ENCOUNTER → 2019-07-11 12:58 | Outpatient (BNVA) | payer OTHER, SELFPAY | PROVIDERS: Family Provider Nurse Practitioner Family; PCP Orthopaedic Surgery; Visit Provider Orthopaedic Surgery | DX: Z48.89 Encounter for other specified surgical aftercare (principal); Z96.651 Presence of right artificial knee joint | CPT/HCPCS: 73560; 73565 ==

== ENCOUNTER → 2019-07-20 10:59 | Outpatient (BNVA) | payer OTHER, SELFPAY | PROVIDERS: Family Provider Nurse Practitioner Family; PCP Orthopaedic Surgery; Visit Provider Internal Medicine Cardiovascular Disease | DX: I48.91 Unspecified atrial fibrillation (principal); I95.9 Hypotension, unspecified | CPT/HCPCS: 80048; 80162; 83735; 83880 ==

== ENCOUNTER → 2019-07-21 09:08 | Outpatient (BNVA) | payer OTHER, SELFPAY | PROVIDERS: Family Provider Nurse Practitioner Family; PCP Orthopaedic Surgery; Visit Provider Orthopaedic Surgery | DX: Z98.890 Other specified postprocedural states (principal); Z96.651 Presence of right artificial knee joint | CPT/HCPCS: 73562 ==

== ENCOUNTER 2019-07-21 10:17 | Outpatient (CLI) | payer OTHER, SELFPAY ==
[2019-07-21 11:01] LABS: C Reactive Protein 48.9 mg/L (0.0-4.9)
== END 2019-07-21 10:18 | disposition home or self-care (01) ==
LOC: LAB 10:20
PROVIDERS: Family Provider Nurse Practitioner Family; PCP Orthopaedic Surgery; Visit Provider Orthopaedic Surgery
DX: Z96.659 Presence of unspecified artificial knee joint (principal); Z48.89 Encounter for other specified surgical aftercare
CPT/HCPCS: 36415; 86140

== ENCOUNTER → 2019-07-27 08:55 | Outpatient (BNVA) | payer OTHER, SELFPAY | PROVIDERS: Family Provider Nurse Practitioner Family; PCP Orthopaedic Surgery; Visit Provider Internal Medicine Cardiovascular Disease | DX: I95.9 Hypotension, unspecified (principal) | CPT/HCPCS: 80048; 83880 ==

== ENCOUNTER → 2019-08-03 09:53 | Outpatient (BNVA) | payer OTHER, MEDICARE, SELFPAY | PROVIDERS: Family Provider Nurse Practitioner Family; PCP Orthopaedic Surgery; Visit Provider Internal Medicine Cardiovascular Disease | DX: Z96.659 Presence of unspecified artificial knee joint (principal) | CPT/HCPCS: 85025; 85651; 86141 ==

== ENCOUNTER → 2019-08-31 09:27 | Outpatient (BNVA) | payer OTHER, MEDICARE, SELFPAY | PROVIDERS: Family Provider Nurse Practitioner Family; PCP Orthopaedic Surgery; Visit Provider Orthopaedic Surgery | DX: Z48.89 Encounter for other specified surgical aftercare (principal); Z98.890 Other specified postprocedural states; Z96.651 Presence of right artificial knee joint | CPT/HCPCS: 73560; 73565 ==

== ENCOUNTER 2019-09-05 06:00 | Outpatient (RCR) | payer OTHER, SELFPAY ==
[2019-09-01 11:22] LABS: Basophils % 0.5 %; Eosinophils # 0.1 10^3/uL (0.0-0.8); Eosinophils % 2.4 %; Hematocrit 40.7 % (42.0-52.0); Hemoglobin 12.8 g/dL (11.7-16.6); Lymphocytes % 17.3 %; Mean Corpuscular HGB Conc 31.4 g/dL (30.0-36.0); Mean Corpuscular Hemoglobin 29.9 pg (28.0-34.0); Mean Corpuscular Volume 95.1 fL (80-94); Mean Platelet Volume 10.5 fL (7.4-10.4); Monocytes # 0.7 10^3/uL (0.2-0.9); Monocytes % 11.9 %; Neutrophils # 3.9 10^3/uL (1.8-7.7); Neutrophils % 67.6 %; Nucleated Red Blood Cells % 0 %; Platelet Count 271 10^3/cmm (130-400); Red Blood Count 4.28 10^6/uL (4.1-5.3); Red Cell Distribution Width 14.6 % (12.1-15.1); White Blood Count 5.8 10^3/uL (4.0-10.0)
[2019-09-01 11:52] LABS: C Reactive Protein 1.8 mg/L (0.0-4.9)
[2019-09-01 12:12] LABS: Erythrocyte Sedimentation Rate 38 mm/hr (0-10)
== END 2019-09-17 23:59 | disposition home or self-care (01) ==
LOC: TPT 06:00
PROVIDERS: PCP Emergency Medicine Emergency Medical Services; Referring Provider Orthopaedic Surgery; Visit Provider Orthopaedic Surgery
DX: Z47.1 Aftercare following joint replacement surgery (principal); Z96.651 Presence of right artificial knee joint
CPT/HCPCS: 36415; 85025; 85651; 86140; 97110; 97140; 97161; G0283

== ENCOUNTER 2019-09-06 09:12 | Outpatient (CLI) | payer OTHER, SELFPAY ==
--- NOTE | 2019-09-06 09:16 | USCV_ITS ---
Waqas Robbie Age: 79 Gender: M : 1940 Exam Date: 09/06/2019 09:25 Ordering Phys: Jose Lyn DO Technologist: Breanne Roth [place] [facility] [place]: STENOSIS Risk Factors: Previous Vascular Surgery: Right Brachial BP: / Left Brachial BP: / Right Left Velocity (cm/s) Spectral Plaque Velocity (cm/s) Spectral Plaque Syst/Diast Broadening Syst/Diast Broadening 65.10/ 15.40 Prox CCA 71.50 / 8.50 58.40/ 14.30 Mid CCA 62.90 / 11.70 69.50/ 12.10 Distal CCA 54.40 / 5.40 29.50/ 14.80 Prox ICA 55.10 / 11.60 55.90/ 14.80 Mid ICA 83.20 / 19.80 77.70/ 24.90 Distal ICA 80.70 / 18.90 93.70 ECA 89.30 1.33 ICA/CCA 1.32 Antegrade Vertebral Antegrade 28.70/ 9.30 cm/s 22.70/ 6.00 cm/s Tri Subclavian Tri 76.90 87.90 CONCLUSIONS Right ICA stenosis <50%. Mild atheromatous plaque right carotid bulb/ICA. Left ICA stenosis <50%. Mild atheromatous plaque left carotid bulb/ICA. Normal antegrade Doppler flow noted in the right vertebral artery. Normal antegrade Doppler flow noted in the left vertebral artery. Deandre Rodriguez MD (Electronically Signed) Final Date: 06 Sep 2019 10:04 S
== END 2019-09-06 09:13 | disposition home or self-care (01) ==
LOC: RAD 09:15
PROVIDERS: PCP Emergency Medicine Emergency Medical Services; Visit Provider Emergency Medicine Emergency Medical Services
DX: I65.23 Occlusion and stenosis of bilateral carotid arteries (principal)
CPT/HCPCS: 93880

== ENCOUNTER 2019-09-18 06:00 | Outpatient (RCR) | payer OTHER, MEDICARE, SELFPAY | END 2019-10-17 23:59 | disposition home or self-care (01) | LOC: TPT 06:00 | PROVIDERS: PCP Emergency Medicine Emergency Medical Services; Visit Provider Orthopaedic Surgery | DX: Z47.1 Aftercare following joint replacement surgery (principal); Z96.651 Presence of right artificial knee joint | CPT/HCPCS: 97110; 97140 ==

== ENCOUNTER → 2019-09-19 08:57 | Outpatient (BNVA) | payer OTHER, SELFPAY | PROVIDERS: PCP Emergency Medicine Emergency Medical Services; Visit Provider Specialist | DX: G25.0 Essential tremor (principal); Z86.73 Personal history of transient ischemic attack (TIA), and cerebral infarction without residual deficits | CPT/HCPCS: 99213 ==

== ENCOUNTER → 2019-11-10 09:15 | Outpatient (BNVA) | payer OTHER, MEDICARE, SELFPAY | PROVIDERS: PCP Emergency Medicine Emergency Medical Services; Visit Provider Orthopaedic Surgery | DX: M17.11 Unilateral primary osteoarthritis, right knee (principal); Z96.659 Presence of unspecified artificial knee joint | CPT/HCPCS: 73560; 73565 ==

== ENCOUNTER → 2019-12-19 11:05 | Outpatient (BNVA) | payer OTHER, SELFPAY | PROVIDERS: PCP Emergency Medicine Emergency Medical Services; Visit Provider Specialist | DX: G25.0 Essential tremor (principal); Z86.73 Personal history of transient ischemic attack (TIA), and cerebral infarction without residual deficits | CPT/HCPCS: 99212 ==

== ENCOUNTER → 2020-06-19 09:17 | Outpatient (BNVA) | payer OTHER, SELFPAY | PROVIDERS: PCP Emergency Medicine Emergency Medical Services; Visit Provider Specialist | DX: G25.0 Essential tremor (principal); M19.09 Primary osteoarthritis, other specified site; Z86.73 Personal history of transient ischemic attack (TIA), and cerebral infarction without residual deficits | CPT/HCPCS: 99213; 99214 ==

== ENCOUNTER 2020-09-20 12:35 | Outpatient (CLI) | payer OTHER, SELFPAY ==
--- NOTE | 2020-09-20 13:30 | USCV_ITS ---
WaqasRobbie Age: 80 Gender: M : 1940 Exam Date: 09/20/2020 12:46 Ordering Phys: Travon Flower MD (Andy) [email or web address] [place] Technologist: Breanne Roth Exam Location: [facility] – [place] Indication: STENOSIS Risk Factors: Previous Vascular Surgery: Right Brachial BP: / Left Brachial BP: / Right Left Velocity (cm/s) Spectral Plaque Velocity (cm/s) Spectral Plaque Syst/Diast Broadening Syst/Diast Broadening 89.30/ 8.80 Prox CCA 63.90 / 7.10 80.50/ 20.90 Mid CCA 85.40 / 6.80 46.30/ 8.80 Distal CCA 79.50 / 10.30 37.00/ 8.30 Prox ICA 101.20/ 15.80 64.50/ 14.70 Mid ICA 135.40/ 22.30 64.50/ 13.40 Distal ICA 89.40 / 21.00 124.10 ECA 144.60 0.80 ICA/CCA 1.58 Antegrade Vertebral Antegrade 45.30/ 10.20 cm/s 39.60/ 11.70 cm/s Tri Subclavian Tri 54.30 154.7 0 CONCLUSIONS Right ICA stenosis <50%. Left ICA stenosis 50-69%. at the lower end of the range Normal antegrade Doppler flow noted in the right vertebral artery. Normal antegrade Doppler flow noted in the left vertebral artery. Deandre Rodriguez MD (Electronically Signed) Final Date: 20 September 2020 16:00 S
== END 2020-09-20 12:36 | disposition home or self-care (01) ==
LOC: RAD 12:38
PROVIDERS: PCP Emergency Medicine Emergency Medical Services; Visit Provider Thoracic Surgery (Cardiothoracic Vascular Surgery)
DX: I65.23 Occlusion and stenosis of bilateral carotid arteries (principal)
CPT/HCPCS: 93880

== ENCOUNTER 2020-11-08 09:00 | Outpatient (CLI) | payer OTHER, SELFPAY ==
--- NOTE | 2020-11-08 09:30 | USCV_ITS ---
WaqasRobbie Age: 80 Gender: M : 1940 Exam Date: 11/08/2020 09:26 Ordering Phys: Travon Flower MD (Andy) [email or web address] [place] Technologist: Ute Pineda Exam Location: [facility] – [place] Indication: Cardiac murmur unspecified BP: 130 / 80 HR: 85 Rhythm: Other Technical Quality: Adequate MEASUREMENTS (Male / Female) Normal Values 2D ECHO LV Diastolic Diameter PLAX 3.8 cm 4.2 - 5.9 / 3.9 - 5.3 cm LV Systolic Diameter PLAX 2.4 cm IVS Diastolic Thickness 1.3 cm 0.6 - 1.0 / 0.6 - 0.9 cm IVS Systolic Thickness 2.1 cm LVPW Diastolic Thickness 1.4 cm 0.6 - 1.0 / 0.6 - 0.9 cm LVPW Systolic Thickness 1.5 cm LV Ejection Fraction 2D Teich 68.0 % LV Ejection Fraction MOD 2C 50.9 % LV Ejection Fraction 2C AL 52.0 % LA Diameter 3.0 cm LA Width 3.2 cm LA Height 5.2 cm RA Width 4.2 cm RA Height 5.3 cm Aorta at Sinotubular Diameter 3.4 cm M-MODE Aortic Annulus Diameter 3.8 cm LA Ao Ratio MM 0.8 MV E Point Septal Separation 0.7 cm DOPPLER AV Peak Velocity 238.2 cm/s LVOT Peak Velocity 81.0 cm/s MV Peak Velocity 93.0 cm/s MV Area PHT 2.3 cm squared Mitral E to A Ratio 1.3 MV E' Velocity 41.0 cm/s Mitral E to MV E' Ratio 14.6 Mitral E to LV E' Lateral Ratio 9.5 Mitral E to LV E' Septal Ratio 31.0 TR Peak Velocity 118.1 cm/s TR Peak Gradient 5.6 mmHg TR Mean Velocity 59.8 cm/s TR Mean Gradient 1.7 mmHg TR Velocity Time Integral 15.7 cm Right Atrial Pressure 3.0 mmHg Pulmonary Artery Systolic Pressu 8.6 mmHg PV Peak Velocity 63.0 cm/s RV Acceleration Time 0.1 s RV Ejection Time 0.3 s RV AcT/ET 0.4 FINDINGS Left Ventricle Normal left ventricular size, systolic function and wall thickness, with no regional wall motion abnormalities. Left ventricular ejection fraction is estimated at 60 %. Abnormal diastolic function. Right Ventricle Normal right ventricular size and systolic function. Right ventricular systolic pressure 19 mmHg. Right Atrium Normal right atrial size. Right atrial pressure estimated at 3 mm Hg. Left Atrium Normal left atrial size. Mitral Valve Mildly thickened mitral valve. No mitral valve stenosis. Trace mitral valve regurgitation. Aortic Valve Moderately thickened and calcified probably trileaflet aortic valve (more along right and non coronary cusp). Mild aortic valve stenosis, peak velocity 2.5 m/s, peak gradient 25 mm Hg, mean gradient 13 mmHg, RAS 1.7 cm squared. Mild to moderate aortic valve regurgitation. Tricuspid Valve Structurally normal tricuspid valve. No tricuspid valve stenosis. Trace to mild tricuspid valve regurgitation. Pulmonic Valve Structurally normal pulmonic valve. Mild pulmonary valve regurgitation. Pericardium No pericardial effusion. Aorta Normal size aortic root and proximal ascending aorta. Normal sized inferior vena cava with normal respiratory variations. CONCLUSIONS 1. Normal left ventricular size, systolic function and wall thickness, with no regional wall motion abnormalities. Left ventricular ejection fraction is estimated at 60 %. Abnormal diastolic function. 2. Moderately thickened and calcified probably trileaflet aortic valve (more along right and non coronary cusp). Mild aortic valve stenosis, peak velocity 2.5 m/s, peak gradient 25 mm Hg, mean gradient 13 mmHg, RAS 1.7 cm squared. Mild to moderate aortic valve regurgitation. 3. Pulmonary artery pressure estimated at 19 mm Hg. 4. When compared to previous echocardiogram dated 03/27/2019, there is slight worsening of aortic valve stenosis and regurgitation. Shannon Ruby MD (Electronically Signed) Final Date: 10 November 2020 11:23 S
== END 2020-11-08 09:01 | disposition home or self-care (01) ==
LOC: US 09:05
PROVIDERS: PCP Emergency Medicine Emergency Medical Services; Visit Provider Thoracic Surgery (Cardiothoracic Vascular Surgery)
DX: R01.1 Cardiac murmur, unspecified (principal); I35.0 Nonrheumatic aortic (valve) stenosis
CPT/HCPCS: 93306

== ENCOUNTER 2021-06-25 12:57 | Outpatient (CLI) | payer OTHER, SELFPAY ==
--- NOTE | 2021-06-25 13:30 | USCV_ITS ---
Waqas Robbie Age: 80 Gender: M : 1940 Exam Date: 06/25/2021 13:39 Ordering Phys: Travon Flower MD (Andy) [email or web address] [place] Technologist: Matheus Farmer [place] [facility] [place]ication: bialteral carotid stenosis Risk Factors: Previous Vascular Surgery: Right Brachial BP: / Left Brachial BP: / Right Left Velocity (cm/s) Spectral Plaque Velocity (cm/s) Spectral Plaque Syst/Diast Broadening Syst/Diast Broadening 114.10/8.80 Prox CCA 96.70 / 28.80 125.70/13.20 Mid CCA 83.40 / 21.10 123.50/14.30 Distal CCA 62.90 / 11.70 35.50/ 13.10 Prox ICA 79.20 / 14.00 118.80/29.90 Mid ICA 148.80/ 35.30 71.20/ 19.20 Distal ICA 96.30 / 21.80 125.70 ECA 133.40 0.94 ICA/CCA 1.78 Antegrade Vertebral Antegrade 71.80/ 13.70 cm/s 66.00/ 9.30 cm/s Tri Subclavian Tri 87.80 100.2 0 FINDINGS Comparison:. 09/20/20. Mild right carotid artery atherosclerosis. No significant stenosis. Mild to moderate irregular plaque left carotid with minimal elevation of velocity in the ICA. Similar to prior exam. Bilateral antegrade vertebral arteries. CONCLUSIONS Left ICA stenosis 50-69%. Closer to 50%. No progression since the prior exam. Right ICA stenosis < 50%. Dr. Martha Olivia DO (Electronically Signed) Final Date: 27 June 2021 07:57 S
== END 2021-06-25 12:58 | disposition home or self-care (01) ==
LOC: RAD 12:59
PROVIDERS: PCP Emergency Medicine Emergency Medical Services; Visit Provider Thoracic Surgery (Cardiothoracic Vascular Surgery)
DX: I65.23 Occlusion and stenosis of bilateral carotid arteries (principal)
CPT/HCPCS: 93880

== ENCOUNTER → 2021-07-03 09:59 | Outpatient (BNVA) | payer OTHER, SELFPAY | PROVIDERS: PCP Emergency Medicine Emergency Medical Services; Visit Provider Thoracic Surgery (Cardiothoracic Vascular Surgery) | DX: I65.23 Occlusion and stenosis of bilateral carotid arteries (principal) | CPT/HCPCS: 99202; 99212 ==

== ENCOUNTER → 2021-09-11 13:53 | Outpatient (BNVA) | payer OTHER, SELFPAY | PROVIDERS: PCP Emergency Medicine Emergency Medical Services; Visit Provider Internal Medicine Cardiovascular Disease | DX: I48.91 Unspecified atrial fibrillation (principal); I95.9 Hypotension, unspecified; Z86.73 Personal history of transient ischemic attack (TIA), and cerebral infarction without residual deficits; I65.23 Occlusion and stenosis of bilateral carotid arteries | CPT/HCPCS: 99214 ==

== ENCOUNTER 2022-06-18 11:05 | Outpatient (CLI) | payer OTHER, SELFPAY ==
--- NOTE | 2022-06-18 11:15 | USCV_ITS ---
Waqas Robbie Age: 81 Gender: M : 1940 Exam Date: 06/18/2022 11:25 Ordering Phys: Travon Flower MD (Andy) ([email or web address] [place] Technologist: Beverly Mills Exam Location: [facility] – [place] Indication: YENY CCA STENOSIS Risk Factors: Previous Vascular Surgery: Right Brachial BP: / Left Brachial BP: / Right Left Velocity (cm/s) Spectral Plaque Velocity (cm/s) Spectral Plaque Syst/Diast Broadening Syst/Diast Broadening 99.20/ 14.30 Prox CCA 71.80 / 17.90 102.50/15.40 Mid CCA 49.30 / 9.20 49.30/ 9.20 Distal CCA 78.20 / 21.70 Hetro 32.00/ 10.30 Prox ICA 62.40 / 15.80 Hetro 52.10/ 16.70 Mid ICA 155.40/ 24.90 Hetro 74.30/ 23.10 Distal ICA 122.70/ 29.50 Hetro 71.80 ECA 65.10 0.73 ICA/CCA 3.15 Antegrade Vertebral Antegrade 47.00/ 13.70 cm/s 37.50/ 8.50 cm/s Tri Subclavian Tri 61.50 130.1 0 FINDINGS Comparison:. 09/20/20. Diffuse bilateral scattered calcified plaque and intimal thickening throughout the common carotid arteries and extending through the bifurcation. Mild elevation of velocity left ICA. No change right ICA. Antegrade vertebral arteries. CONCLUSIONS Left ICA stenosis 50-69%. Mild progression of stenosis. Right ICA stenosis < 50%. Dr. Martha Olivia DO (Electronically Signed) Final Date: 18 June 2022 13:50 S
== END 2022-06-18 11:06 | disposition home or self-care (01) ==
LOC: RAD 11:10
PROVIDERS: PCP Emergency Medicine Emergency Medical Services; Visit Provider Thoracic Surgery (Cardiothoracic Vascular Surgery)
DX: I65.23 Occlusion and stenosis of bilateral carotid arteries (principal)
CPT/HCPCS: 93880

== ENCOUNTER → 2022-06-24 12:40 | Outpatient (BNVA) | payer OTHER, SELFPAY | PROVIDERS: PCP Emergency Medicine Emergency Medical Services; Visit Provider Nurse Practitioner Family | DX: I48.91 Unspecified atrial fibrillation (principal); R01.1 Cardiac murmur, unspecified; I65.23 Occlusion and stenosis of bilateral carotid arteries; I35.0 Nonrheumatic aortic (valve) stenosis; Z79.01 Long term (current) use of anticoagulants | CPT/HCPCS: 99214 ==

== ENCOUNTER 2022-07-17 08:28 | Outpatient (CLI) | payer OTHER, SELFPAY ==
--- NOTE | 2022-07-17 08:45 | USCV_ITS ---
Robbie Alan Age: 82 Gender: M : 1940 Exam Date: 07/17/2022 08:41 Ordering Phys: Nelida Sherwood Technologist: Exam Location: [facility] [place] Indication: as BP: 125 / 75 HR: 67 Rhythm: Sinus Technical Quality: Adequate MEASUREMENTS (Male / Female) Normal Values 2D ECHO LV Diastolic Diameter PLAX 3.6 cm 4.2 - 5.9 / 3.9 - 5.3 cm LV Systolic Diameter PLAX 1.8 cm IVS Diastolic Thickness 1.4 cm 0.6 - 1.0 / 0.6 - 0.9 cm IVS Systolic Thickness 1.8 cm LVPW Diastolic Thickness 1.6 cm 0.6 - 1.0 / 0.6 - 0.9 cm LVPW Systolic Thickness 2.5 cm LVOT Diameter 2.0 cm LV Ejection Fraction 2D Teich 81.8 % LV Ejection Fraction MOD 2C 64.7 % LV Ejection Fraction 2C AL 64.4 % LA Diameter 2.9 cm Aorta at Sinotubular Diameter 3.7 cm IVC Diameter 1.1 cm M-MODE Aortic Annulus Diameter 3.4 cm LA Ao Ratio MM 0.9 MV E Point Septal Separation 0.9 cm DOPPLER AV Peak Velocity 225.3 cm/s LVOT Peak Velocity 75.0 cm/s AV Area Cont Eq vti 1.1 cm squared AV Area Cont Eq pk 1.1 cm squared MV Area PHT 3.1 cm squared Mitral E to A Ratio 3.3 MV E' Velocity 54.0 cm/s Mitral E to MV E' Ratio 16.6 Mitral E to LV E' Lateral Ratio 20.2 Mitral E to LV E' Septal Ratio 14.3 TR Peak Velocity 297.3 cm/s TR Peak Gradient 35.4 mmHg TV Peak E Velocity 88.0 cm/s Right Atrial Pressure 3.0 mmHg Pulmonary Artery Systolic Pressu 38.4 mmHg PV Peak Velocity 0.0 cm/s RV Acceleration Time 0.1 s FINDINGS Left Ventricle Normal left ventricular size and systolic function, EF 68 %. Mild left ventricular hypertrophy. No regional wall motion abnormalities. Right Ventricle The right ventricle is normal in size and function. Right Atrium The right atrium is normal in size. Left Atrium The left atrium is normal in size. Mitral Valve Thickened mitral valve. Moderate mitral annular calcification. Aortic Valve Thickened aortic valve. Moderate aortic valve calcification. [id number] aortic valve regurgitation. Features of aortic valve sclerosis Tricuspid Valve Mild tricuspid valve regurgitation. Slightly elevated pulmonary artery peak systolic pressure Pulmonic Valve Moderate pulmonary valve regurgitation. Pericardium No pericardial effusion. Aorta . Normal aortic annulus size. IVC Normal inferior vena cava. CONCLUSIONS Normal left ventricular size and systolic function, EF 68 %. Mild left ventricular hypertrophy. No regional wall motion abnormalities. Thickened mitral valve. Moderate mitral annular calcification. Moderate aortic valve calcification. [id number] aortic valve regurgitation. Possible moderate aortic valve stenosis with a valve area 1.1 cm squared Mild tricuspid valve regurgitation. Estimated pulmonary artery peak systolic pressure 38 mmHg Moderate pulmonary valve regurgitation. There are no intracardiac masses. There is no pericardial effusion. Compared to the study from 11/08/2020 there is slight worsening of the aortic valve stenosis based on the area calculation Dr Bettina Marcum MD FAC (Electronically Signed) Final Date: 17 July 2022 12:28 S
== END 2022-07-17 08:29 | disposition home or self-care (01) ==
PROVIDERS: PCP Emergency Medicine Emergency Medical Services; Visit Provider Nurse Practitioner Family
DX: R01.1 Cardiac murmur, unspecified (principal); I08.3 Combined rheumatic disorders of mitral, aortic and tricuspid valves
CPT/HCPCS: 93306

== ENCOUNTER → 2022-07-23 09:14 | Outpatient (BNVA) | payer OTHER, SELFPAY | PROVIDERS: PCP Emergency Medicine Emergency Medical Services; Visit Provider Thoracic Surgery (Cardiothoracic Vascular Surgery) | DX: I65.23 Occlusion and stenosis of bilateral carotid arteries (principal) | CPT/HCPCS: 99213 ==

== ENCOUNTER → 2022-11-12 14:36 | Outpatient (BNVA) | payer OTHER, SELFPAY | PROVIDERS: PCP Emergency Medicine Emergency Medical Services; Referring Provider Emergency Medicine Emergency Medical Services; Visit Provider Nurse Practitioner Family | DX: I87.2 Venous insufficiency (chronic) (peripheral) (principal); L82.1 Other seborrheic keratosis; L57.0 Actinic keratosis; L81.4 Other melanin hyperpigmentation; D22.5 Melanocytic nevi of trunk; L85.3 Xerosis cutis; L57.8 Other skin changes due to chronic exposure to nonionizing radiation | CPT/HCPCS: 17000; 99213 ==

== ENCOUNTER → 2023-03-24 08:51 | Outpatient (BNVA) | payer OTHER, SELFPAY | PROVIDERS: PCP Emergency Medicine Emergency Medical Services; Visit Provider Internal Medicine Cardiovascular Disease | DX: I48.21 Permanent atrial fibrillation (principal); Z79.01 Long term (current) use of anticoagulants; I95.9 Hypotension, unspecified; Z86.73 Personal history of transient ischemic attack (TIA), and cerebral infarction without residual deficits | CPT/HCPCS: 99214 ==

== ENCOUNTER 2023-05-27 08:40 | Outpatient (CLI) | payer OTHER, SELFPAY ==
--- NOTE | 2023-05-27 09:15 | USCV_ITS ---
Robbie Alan Age: 82 Gender: M : 1940 Exam Date: 05/27/2023 08:58 Ordering Phys: Shannon Ruby MD ([email or web address]) Technologist: ADÁN Exam Location: [facility] – [place] Indication: RECHECK BP: / HR: 76 Rhythm: Other Technical Quality: Adequate MEASUREMENTS (Male / Female) Normal Values 2D ECHO LV Diastolic Diameter PLAX 4.5 cm 4.2 - 5.9 / 3.9 - 5.3 cm LV Systolic Diameter PLAX 3.3 cm LV Chamber Size 3.3 cm IVS Diastolic Thickness 0.8 cm 0.6 - 1.0 / 0.6 - 0.9 cm IVS Systolic Thickness 1.4 cm LVPW Diastolic Thickness 1.1 cm 0.6 - 1.0 / 0.6 - 0.9 cm LVPW Systolic Thickness 1.2 cm RV Chamber Size 3.2 cm LVOT Diameter 2.0 cm LV Ejection Fraction 2D Teich 39.4 % LV Ejection Fraction MOD 2C 78.7 % LV Ejection Fraction 2C AL 80.2 % LA Diameter 2.6 cm LA Width 2.4 cm LA Height 3.7 cm RA Width 3.9 cm RA Height 4.6 cm Aorta at Sinotubular Diameter 2.9 cm IVC Diameter 1.3 cm M-MODE Aortic Annulus Diameter 3.8 cm LA Ao Ratio MM 0.8 MV E Point Septal Separation 0.8 cm DOPPLER AV Peak Velocity 225.7 cm/s LVOT Peak Velocity 70.5 cm/s AV Area Cont Eq vti 1.2 cm squared AV Area Cont Eq pk 1.0 cm squared MV Area PHT 2.5 cm squared Mitral E to A Ratio 125.8 MV E' Velocity 54.5 cm/s Mitral E to MV E' Ratio 12.1 Mitral E to LV E' Lateral Ratio 12.1 Mitral E to LV E' Septal Ratio 12.3 TR Peak Velocity 215.8 cm/s TR Peak Gradient 18.6 mmHg TR Mean Velocity 186.5 cm/s TR Mean Gradient 15.1 mmHg TR Velocity Time Integral 72.3 cm TV Peak E Velocity 51.0 cm/s Right Atrial Pressure 3.0 mmHg Pulmonary Artery Systolic Pressu 21.6 mmHg RV Acceleration Time 0.1 s RV Ejection Time 0.3 s RV AcT/ET 0.2 FINDINGS Left Ventricle Left ventricle is normal in size. LV systolic function is normal with EF of 55-60%. No regional wall motion abnormalities are seen. Right Ventricle Normal in size and function Right Atrium Normal in size Left Atrium Normal in size Mitral Valve Mild mitral annular calcification. Mild mitral regurgitation Aortic Valve Aortic valve is thickened and calcified. Mild aortic regurgitation. Moderate aortic stenosis with aortic valve area 1.2 cm2 and mean gradient of 12 mHg. Tricuspid Valve Mild tricuspid regurgitation. Insufficient TR jet to calculate RVSP. Pulmonic Valve Not well visualized. Mild pulmonic regurgitation. Pericardium Normal Aorta Normal in size IVC Appears to be normal CONCLUSIONS LV systolic function is normal with EF of 55 to 60%. Mild mitral regurgitation. Mild aortic regurgitation. Moderate aortic stenosis Mild tricuspid regurgitation Mild pulmonic regurgitation Compared to prior echocardiogram from 2022, no significant changes are seen. Tommy Estrada MD (Electronically Signed) Final Date: 09 June 2023 12:47 S
== END 2023-05-27 08:41 | disposition home or self-care (01) ==
LOC: RAD 08:41
PROVIDERS: PCP Emergency Medicine Emergency Medical Services; Visit Provider Internal Medicine Cardiovascular Disease
DX: I35.0 Nonrheumatic aortic (valve) stenosis (principal); R01.1 Cardiac murmur, unspecified
CPT/HCPCS: 93306

== ENCOUNTER 2023-06-24 14:42 | Outpatient (CLI) | payer OTHER, SELFPAY ==
--- NOTE | 2023-06-24 15:00 | USCV_ITS ---
Waqas Robbie Age: 82 Gender: M : 1940 Exam Date: 06/24/2023 15:09 Ordering Phys: Travon Flower MD (Andy) ([email or web address] [place]) Technologist: YAA Exam Location: [facility] – [place] Indication: EVAL FOR CAROTID STENOSIS Risk Factors: Previous Vascular Surgery: Right Brachial BP: / Left Brachial BP: / Right Left Velocity (cm/s) Spectral Plaque Velocity (cm/s) Spectral Plaque Syst/Diast Broadening Syst/Diast Broadening 70.90/ 13.00 Prox CCA 80.00 / 11.60 78.60/ 15.20 Mid CCA 91.70 / 14.00 84.00/ 11.90 Distal CCA 65.50 / 11.60 21.70/ 10.30 Prox ICA 63.60 / 10.30 69.90/ 17.30 Mid ICA 108.80/ 25.00 62.30/ 12.60 Distal ICA 61.80 / 19.90 70.90 ECA 111.70 0.80 ICA/CCA 1.70 Antegrade Vertebral Antegrade 38.30/ 9.90 cm/s 67.70/ 8.10 cm/s Tri Subclavian Tri 65.10 84.60 FINDINGS Moderate heterogenous irregular plaques of the left bifurcation and proximal ICA Intimal thickening and minimal plaques in the right internal carotid artery and bifurcation Antegrade flow in the vertebral arteries bilaterally Normal Doppler flow velocities in the external carotid, vertebral and subclavian arteries CONCLUSIONS Moderate heterogenous irregular plaques of the left bifurcation and proximal internal carotid artery, suggesting less than 50% stenosis. Intimal thickening and minimal plaques in the right internal carotid artery and bifurcation. No significant stenosis in the vertebral, subclavian and external carotid arteries, based on the above finding Dr Bettina Marcum MD [facility] (Electronically Signed) Final Date: 30 June 2023 09:10 S
== END 2023-06-24 14:43 | disposition home or self-care (01) ==
LOC: RAD 14:43
PROVIDERS: PCP Emergency Medicine Emergency Medical Services; Visit Provider Thoracic Surgery (Cardiothoracic Vascular Surgery)
DX: I65.22 Occlusion and stenosis of left carotid artery (principal)
CPT/HCPCS: 93880

== ENCOUNTER → 2023-07-19 13:33 | Outpatient (BNVA) | payer OTHER, SELFPAY | PROVIDERS: PCP Emergency Medicine Emergency Medical Services; Visit Provider Thoracic Surgery (Cardiothoracic Vascular Surgery) | DX: I65.23 Occlusion and stenosis of bilateral carotid arteries (principal) | CPT/HCPCS: 99213 ==

== ENCOUNTER → 2023-09-22 10:46 | Outpatient (BNVA) | payer OTHER, SELFPAY | PROVIDERS: PCP Emergency Medicine Emergency Medical Services; Visit Provider Internal Medicine Cardiovascular Disease | DX: I48.19 Other persistent atrial fibrillation (principal); I35.0 Nonrheumatic aortic (valve) stenosis; I95.9 Hypotension, unspecified; I65.23 Occlusion and stenosis of bilateral carotid arteries; Z86.73 Personal history of transient ischemic attack (TIA), and cerebral infarction without residual deficits; Z79.01 Long term (current) use of anticoagulants | CPT/HCPCS: 99214 ==

== ENCOUNTER → 2024-03-14 11:15 | Outpatient (BNVA) | payer OTHER, SELFPAY | PROVIDERS: PCP Emergency Medicine Emergency Medical Services; Visit Provider Internal Medicine Cardiovascular Disease | DX: I48.19 Other persistent atrial fibrillation (principal); I95.9 Hypotension, unspecified; I65.23 Occlusion and stenosis of bilateral carotid arteries; I35.0 Nonrheumatic aortic (valve) stenosis; Z79.01 Long term (current) use of anticoagulants | CPT/HCPCS: 99214 ==

== ENCOUNTER → 2024-10-16 09:35 | Outpatient (BNVA) | payer OTHER, SELFPAY | PROVIDERS: PCP Family Medicine; Visit Provider Nurse Practitioner Family | DX: I48.19 Other persistent atrial fibrillation (principal); Z79.01 Long term (current) use of anticoagulants; I65.23 Occlusion and stenosis of bilateral carotid arteries; I35.0 Nonrheumatic aortic (valve) stenosis; Z86.73 Personal history of transient ischemic attack (TIA), and cerebral infarction without residual deficits | CPT/HCPCS: 99214 ==

== ENCOUNTER 2024-10-27 08:58 | Outpatient (CLI) | payer OTHER, SELFPAY ==
--- NOTE | 2024-10-27 09:15 | USCV_ITS ---
Robbie Alan Age: 84 Gender: M : 1940 Exam Date: 10/27/2024 09:21 Ordering Phys: Oma Guzman NP Technologist: JAMARCUS Exam Location: [facility] [place] Indication: stenosis Risk Factors: Previous Vascular Surgery: Right Brachial BP: / Left Brachial BP: / Right Left Velocity (cm/s) Spectral Plaque Velocity (cm/s) Spectral Plaque Syst/Diast Broadening Syst/Diast Broadening 77.60/ 12.80 Prox CCA 67.80 / 9.80 72.40/ 10.20 Mid CCA 68.50 / 9.70 46.50/ 7.60 Distal CCA 55.60 / 4.70 19.60/ 3.20 Prox ICA 59.50 / 12.00 38.30/ 11.40 Mid ICA 114.30/ 19.30 41.60/ 10.50 Distal ICA 61.90 / 13.80 68.00 ECA 99.70 0.90 ICA/CCA 1.10 Antegrade Vertebral Antegrade 22.00/ 4.50 cm/s 23.10/ 6.80 cm/s Tri Subclavian Tri 41.90 80.70 CONCLUSIONS Right ICA stenosis <50%. Moderate atheromatous plaque right carotid bulb/ICA. Left ICA stenosis <50%. Moderate atheromatous plaque left carotid bulb/ICA. Intimal thickening in the common carotid arteries and internal carotid arteries bilaterally. Normal antegrade Doppler flow noted in the right vertebral artery. Normal antegrade Doppler flow noted in the left vertebral artery. Deandre Rodriguez MD (Electronically Signed) Final Date: 27 October 2024 17:46 S
== END 2024-10-27 08:59 | disposition home or self-care (01) ==
LOC: RAD 08:58
PROVIDERS: PCP Family Medicine; Visit Provider Nurse Practitioner Family
DX: I65.23 Occlusion and stenosis of bilateral carotid arteries (principal)
CPT/HCPCS: 93880

== ENCOUNTER 2024-12-14 08:04 | Outpatient (CLI) | payer OTHER, SELFPAY ==
--- NOTE | 2024-12-14 09:15 | USCV_ITS ---
Waqas Robbie Age: 84 Gender: M : 1940 Exam Date: 12/14/2024 09:12 Ordering Phys: Oma Guzman NP Technologist: KARYN [place] [facility] [place]: BP: 130 / 60 HR: 88 Rhythm: Sinus Technical Quality: Adequate MEASUREMENTS (Male / Female) Normal Values 2D ECHO LV Diastolic Diameter PLAX 4.0 cm 4.2 - 5.9 / 3.9 - 5.3 cm IVS Diastolic Thickness 1.4 cm 0.6 - 1.0 / 0.6 - 0.9 cm IVS Systolic Thickness 1.7 cm LVPW Diastolic Thickness 1.4 cm 0.6 - 1.0 / 0.6 - 0.9 cm LVPW Systolic Thickness 1.9 cm LVOT Diameter 2.1 cm LV Ejection Fraction 2D Teich 54.1 % LV Ejection Fraction MOD 4C 58.0 % LV Ejection Fraction MOD 2C 53.7 % LV Ejection Fraction 2C AL 54.2 % LA Diameter 3.9 cm RA Systolic Volume 4C AL 75.3 ml RA Systolic Volume 4C MOD 68.2 ml LA Sys Volume AL 64.2 cm cubed LA Sys Volume Index AL 31.1 cm cubed/m squared Aorta at Sinotubular Diameter 2.9 cm IVC Diameter 1.7 cm M-MODE LA Ao Ratio MM 0.9 AV Cusp Separation MM 0.8 cm DOPPLER AV Peak Velocity 230.5 cm/s LVOT Peak Velocity 63.0 cm/s AV Area Cont Eq vti 0.9 cm squared AV Area Cont Eq pk 1.0 cm squared MV Peak Velocity 91.0 cm/s MV Area PHT 4.3 cm squared Mitral E to A Ratio 3.0 TV Peak Velocity 154.5 cm/s TR Peak Velocity 211.0 cm/s TR Peak Gradient 17.8 mmHg TV Peak E Velocity 66.0 cm/s PV Peak Velocity 88.0 cm/s FINDINGS Left Ventricle Normal left ventricular size and systolic function with no regional wall motion abnormalities. LV systolic function is normal with EF of 55-60%. Right Ventricle Normal right ventricular size and systolic function. Right Atrium Dilated Left Atrium Dilated Mitral Valve Thickened mitral valve. Trace mitral valve regurgitation. Aortic Valve Moderate aortic valve calcification. Moderate aortic valve stenosis, mean gradient 12.5 mmHg, RAS 0.94 cm squared. Mild aortic regurgitation Tricuspid Valve Mild tricuspid valve regurgitation. Pulmonary artery systolic pressure is normal Pulmonic Valve Mild pulmonic regurgitation Pericardium Normal Aorta Normal in size IVC Appears to be normal CONCLUSIONS LV systolic function is normal with EF of 55-60% Biatrial dilation Trace mitral regurgitation Moderate aortic valve stenosis Mild aortic regurgitation Mild tricuspid valve regurgitation. Mild pulmonic regurgitation Tommy Estrada MD (Electronically Signed) Final Date: 16 December 2024 00:21 S
== END 2024-12-14 08:05 | disposition home or self-care (01) ==
LOC: RAD 08:05
PROVIDERS: PCP Family Medicine; Visit Provider Nurse Practitioner Family
DX: I35.0 Nonrheumatic aortic (valve) stenosis (principal); R93.1 Abnormal findings on diagnostic imaging of heart and coronary circulation; I05.9 Rheumatic mitral valve disease, unspecified; I35.8 Other nonrheumatic aortic valve disorders; I35.1 Nonrheumatic aortic (valve) insufficiency; I07.1 Rheumatic tricuspid insufficiency; I37.1 Nonrheumatic pulmonary valve insufficiency
CPT/HCPCS: 93306